=== PATIENT | male | born 1970 | race Caucasian/White ===

== ENCOUNTER 2017-05-06 12:23 | Emergency (ER) | payer BC ==
--- NOTE | 2017-05-06 13:06 | ED Physician Documentation ---
PD HPI ABD PAIN - Stated complaint Stated Complaint: BACK PX - Chief complaint Chief Complaint: Back Pain - History obtained from History obtained from: Patient PD PAST MEDICAL HISTORY - Past Medical History Past Medical History: Yes Neuro: TIA - Past Surgical History Past Surgical History: No - Present Medications Home Medications: Ambulatory Orders Medication Instructions Recorded Confirmed Naproxen [Naprosyn] 500 mg PO BID #20 tablet 05/06/17 Ondansetron Odt [Zofran] 4 mg TL Q6H PRN #15 tablet 05/06/17 - Allergies Allergies/Adverse Reactions: Allergies Allergy/AdvReac Type Severity Reaction Status Date / Time No Known Drug Allergies Allergy Verified 05/06/17 12:34 - Social History Does the pt smoke?: No Smoking Status: Never smoker Does the pt drink ETOH?: No Does the pt have substance abuse?: No - Immunizations Immunizations are current?: Yes PD ED PE NORMAL - Vitals Vital signs reviewed: Yes - General General: Alert and oriented X 3, Well developed/nourished, Other (appears very uncomfortable due to flank pain.) - HEENT HEENT: Atraumatic - Neck Neck: Supple, no meningeal sign, No adenopathy - Cardiac Cardiac: RRR, No murmur - Respiratory Respiratory: Clear bilaterally - Abdomen Abdomen: Normal bowel sounds, Soft, Non distended, No organomegaly, Other (some tenderness left lower abdomen but no guarding. Left CVA area with marked tnederness. No rash nor sores. ) - Back Back: No spinal TTP - Derm Derm: Normal color, Warm and dry, No rash - Extremities Extremities: Normal ROM s pain - Neuro Neuro: Alert and oriented X 3, No motor deficit, Normal speech Results - Vitals Vitals: Oxygen O2 Source Room air - Labs Labs: Laboratory Tests 05/06/17 12:46 Urine Color YELLOW Urine Clarity CLEAR Urine pH 6.5 Ur Specific Queen >=1.030 H Urine Protein 100 H Urine Glucose (UA) NEGATIVE Urine Ketones 40 H Urine Occult Blood LARGE H Urine Nitrite NEGATIVE Urine Bilirubin NEGATIVE Urine Urobilinogen 0.2 (NORMAL) Ur Leukocyte Esterase NEGATIVE Urine RBC TNTC H Urine WBC 0-3 Ur Squamous Epith Cells NONE SEEN Urine Bacteria Rare Urine Mucus Few Strands Ur Microscopic Review INDICATED Urine Culture Comments NOT INDICATED PD MEDICAL DECISION MAKING - ED course Complexity details: re-evaluated patient (much improved with IV meds. ), considered differential (recent imaging for left flank mild pain and some hematuria. Had 5 mm stone at renal pelvis ready to start passing. I did not see need for imaging at this time. ), d/w patient Departure - Departure Disposition: 01 Home, Self Care Clinical Impression: Left sided abdominal pain, Ureterolithiasis Condition: Stable Record reviewed to determine appropriate education?: Yes Instructions: ED Stone Renal W Colic Prescriptions: Naproxen [Naprosyn] 500 mg PO BID #20 tablet Ondansetron Odt [Zofran] 4 mg TL Q6H PRN #15 tablet PRN Reason: Nausea / Vomiting Comments: Drink adequate fluids. You do not really need to over hydrate. Naproxen or ibuprofen twice daily for inflammation and mild pain. Use of Flomax daily for the next few days. Ondansetron if needed for nausea. Continue the oxycodone for pain. Follow up with the urologist if not improved in the next couple of days. Return to the ER sooner if severe again despite oral medicine. Discharge Date/Time: 05/06/17 15:27
[2017-05-06 13:16] LABS: BILIRUBIN,URINE NEGATIVE (NEGATIVE); PH,URINE 6.5 PH (5.0-7.5)
[2017-05-06 13:17] LABS: UA w/ MICROSCOPIC CHARGE YES
[2017-05-06] MEDS ORDERED: HYDROmorphone 1 MG/ML SYRINGE IVP STA ×2 (13:18→14:25)
[2017-05-06] MEDS ORDERED: DEXAMETHASONE 10 MG/ML VIAL IVP STA (13:18)
[2017-05-06] MEDS ORDERED: SODIUM CHLORIDE 0.9% 1,000 ML IV ONE ×2 (13:18→13:33)
[2017-05-06] MEDS ORDERED: ONDANSETRON 4 MG/2 ML VIAL IVP STA (13:18)
[2017-05-06] MEDS ORDERED: KETOROLAC 60 MG/2 ML VIAL IVP STA (13:18)
[2017-05-06 13:29] LABS: UR CULTURE IF IND NOT INDICATED; WBC,URINE 0-3 /HPF (0-3)
[2017-05-06] MEDS ORDERED: KETOROLAC 30 MG/ML VIAL ONE (13:33)
[2017-05-06] MEDS ORDERED: HYDROmorphone 1 MG/ML SYRINGE ONE ×2 (13:33→14:26)
[2017-05-06] MEDS ORDERED: DEXAMETHASONE 10 MG/ML VIAL ONE (13:33)
[2017-05-06] MEDS ORDERED: ONDANSETRON 4 MG/2 ML VIAL ONE (13:33)
[2017-05-06] MEDS ORDERED: oxyCOD/ACETAMIN 5 MG/325 MG TABLET PO STA (15:03)
[2017-05-06] MEDS ORDERED: ONDANSETRON ODT 4 MG TABLET TL STA (15:03)
[2017-05-06] MEDS ORDERED: oxyCOD/ACETAMIN 5 MG/325 MG TABLET PO ONE (15:17)
[2017-05-06] MEDS ORDERED: ONDANSETRON ODT 4 MG TABLET ONE (15:18)
[2017-05-06 15:26] VITALS: BP 135/91
== END 2017-05-06 15:27 | disposition home or self-care (01) ==
LOC: ED 12:23
DX: N20.1 Calculus of ureter (principal); R10.32 Left lower quadrant pain
CPT/HCPCS: 81001; 96361; 96374; 96375; 96376; 99281; 99283; A9270; J1170; Q0162; 81003; 87086

== ENCOUNTER 2021-07-12 13:43 | Emergency (ER) | payer BC ==
[2021-07-12 13:54] VITALS: BP 151/95
== END 2021-07-12 14:15 | disposition left against medical advice (07) ==
LOC: ED 13:43
DX: Z53.21 Procedure and treatment not carried out due to patient leaving prior to being seen by health care provider (principal)